=== PATIENT | male | born 2000 | race Caucasian/White ===

== ENCOUNTER 2020-02-04 21:27 | Emergency (ER) | payer OTHER ==
[~2020-02-04] VITALS: Ht 167.6 cm; Wt 54.4 kg
[2020-02-04] MEDS ORDERED: AMOXICILLIN500 MG PO (21:45)
[2020-02-04] MEDS ORDERED: CLEOCIN HCL300 MG PO (21:45)
== END 2020-02-04 22:11 | disposition home or self-care (01) ==
LOC: ED 21:27
DX: K04.7 Periapical abscess without sinus (principal)
CPT/HCPCS: 99282

== ENCOUNTER 2020-02-21 20:06 | Emergency (ER) | payer OTHER ==
[~2020-02-21] VITALS: Ht 167.6 cm; Wt 54.4 kg
[~2020-02-21 20:06] MED LIST: AMOXICILLIN500 MG PO; CLEOCIN HCL300 MG PO
--- OUTSIDE RECORDS SUMMARY | 2020-02-21 20:08 | XMS ---
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 Ana has no Care Guidelines for this patient. [facility]12 MO.) [facility] NOTE: Visits indicate total known visits. ED/C VISIT TRACKING (12 MO.) [facility]2020 [facility] COMPLAINT: - LT SIDE TONSIL PAIN 02/04/2020 21:28 [facility] [place] TYPE: Emergency COMPLAINT: - THROAT SWELLING DIAGNOSES: - Periapical abscess without sinus INPATIENT VISIT TRACKING (12 MO.) No inpatient visits to display in this time frame [email or web address]
== END 2020-02-21 21:27 | disposition home or self-care (01) ==
LOC: ED 20:06
DX: J02.9 Acute pharyngitis, unspecified (principal)
CPT/HCPCS: 87880; 99283; A9270; J1100

== ENCOUNTER 2020-03-11 13:29 | Emergency (ER) | payer OTHER ==
[~2020-03-11] VITALS: Ht 167.6 cm; Wt 54.4 kg
--- OUTSIDE RECORDS SUMMARY | 2020-03-11 13:32 | XMS ---
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 Care History Medical/Surgical 02/24/2020 [facility] - PATIENT HAS AN APT ON 03/06/20 TO ESTABLISH CARE WITH SAMANTHA GHOSH. - Patient is currently established with [facility]. If patient is seen in the ED during business hours. Please contact CHWs at [facility]. - Care Recommendation: If this patient has had 5 or more Emergency Department visits in the last 12 months.\T\nbsp; Patient will require education on the scope and purpose of the ED as an acute care provider not a Primary Care Provider and should not be utilized for chronic conditions.\T\nbsp; These are guidelines and the provider should exercise clinical judgment when providing care. 02/22/2020 [facility] - CHW CALLED PATIENT - NO ANSWER- - PATIENT DOES NOT HAVE A PCP IN THE AREA. - NO PCP LETTER SENT TO PATIENT. E.D. VISIT COUNT (12 MO.) [address] [facility] [place] TOTAL 3 NOTE: Visits indicate total known visits. ED/UCC VISIT TRACKING (12 MO.) 03/11/2020 13:29 [facility] [place] TYPE: Emergency COMPLAINT: - VOMITING 02/21/2020 20:06 [facility] [place] TYPE: Emergency COMPLAINT: - SORE THROAT DIAGNOSES: - Acute pharyngitis, unspecified 02/04/2020 21:28 [facility] [place] TYPE: Emergency COMPLAINT: - THROAT SWELLING DIAGNOSES: - Periapical abscess without sinus INPATIENT VISIT TRACKING (12 MO.) No inpatient visits to display in this time frame [id number]
[2020-03-11] MEDS ORDERED: PROMETHAZINE HC25 M1 PO (18:27)
[2020-03-11] MEDS ORDERED: ONDANSETRON ODT8 MG PO (18:27)
== END 2020-03-11 18:43 | disposition home or self-care (01) ==
LOC: ED 13:29
DX: K52.9 Noninfective gastroenteritis and colitis, unspecified (principal)
CPT/HCPCS: 80053; 81001; 83735; 85025; 96361; 96374; 96375; 99284-25; C9113; J1790; J2405; J2550; J7030

== ENCOUNTER 2020-03-20 19:44 | Emergency (ER) | payer OTHER ==
[~2020-03-20] VITALS: Ht 167.6 cm; Wt 51.7 kg
[~2020-03-20 19:44] MED LIST changes: +ONDANSETRON ODT8 MG PO; +PROMETHAZINE HC25 M1 PO
--- OUTSIDE RECORDS SUMMARY | 2020-03-20 19:48 | XMS ---
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 Care History Medical/Surgical 02/24/2020 [facility] - PATIENT HAS AN APT ON 03/22/20 TO ESTABLISH CARE WITH SAMANTHA GHOSH. - Patient is currently established with [facility]. If patient is seen in the ED during business hours. Please contact CHWs at [facility]. - Care Recommendation: If this patient has had 5 or more Emergency Department visits in the last 12 months.\T\nbsp; Patient will require education on the scope and purpose of the ED as an acute care provider not a Primary Care Provider and should not be utilized for chronic conditions.\T\nbsp; These are guidelines and the provider should exercise clinical judgment when providing care. 02/22/2020 [facility] - CHW CALLED PATIENT - NO ANSWER- - PATIENT DOES NOT HAVE A PCP IN THE AREA. - NO PCP LETTER SENT TO PATIENT. EIrasemaD. VISIT COUNT (12 MO.) [address] [facility] [place] TOTAL 4 NOTE: Visits indicate total known visits. ED/UCC VISIT TRACKING (12 MO.) 03/20/2020 19:45 [facility] [place] TYPE: Emergency COMPLAINT: - POSSIBLE TOOTH INFECTION 03/11/2020 13:29 [facility] [place] TYPE: Emergency COMPLAINT: - VOMITING DIAGNOSES: - Noninfective gastroenteritis and colitis, unspecified - Diarrhea, unspecified 02/21/2020 20:06 [facility] [place] TYPE: Emergency COMPLAINT: - SORE THROAT DIAGNOSES: - Acute pharyngitis, unspecified 02/04/2020 21:28 [facility] [place] TYPE: Emergency COMPLAINT: - THROAT SWELLING DIAGNOSES: - Periapical abscess without sinus INPATIENT VISIT TRACKING (12 MO.) No inpatient visits to display in this time frame [id number]
[2020-03-20] MEDS ORDERED: AMOX TR-K CLV1 EAC1 PO (20:11)
== END 2020-03-20 20:40 | disposition home or self-care (01) ==
LOC: ED 19:44
DX: K08.89 Other specified disorders of teeth and supporting structures (principal); H60.91 Unspecified otitis externa, right ear; Z79.899 Other long term (current) drug therapy
CPT/HCPCS: 99282

== ENCOUNTER 2022-01-18 14:34 | Emergency (ER) | payer OTHER ==
[~2022-01-18] VITALS: Ht 167.6 cm; Wt 51.7 kg
[~2022-01-18 14:34] MED LIST changes: +AMOX TR-K CLV1 EAC1 PO
== END 2022-01-18 17:21 | disposition home or self-care (01) ==
LOC: ED 14:34
DX: S61.215A Laceration without foreign body of left ring finger without damage to nail, initial encounter (principal); W22.8XXA Striking against or struck by other objects, initial encounter
CPT/HCPCS: 12001; 99282-25

== ENCOUNTER 2022-03-19 20:46 | Emergency (ER) | payer OTHER ==
[~2022-03-19] VITALS: Ht 167.6 cm; Wt 51.8 kg
--- OUTSIDE RECORDS SUMMARY | 2022-03-19 20:52 | XMS ---
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 Care History Medical/Surgical 02/24/2020 [facility] - PATIENT HAS AN APT ON 03/22/20 TO ESTABLISH CARE WITH SAMANTHA GHOSH. - Patient is currently established with [facility]. If patient is seen in the ED during business hours. Please contact CHWs at [facility]. - Care Recommendation: If this [...] exercise clinical judgment when providing care. 02/22/2020 [facility] - CHW CALLED PATIENT - NO ANSWER- - PATIENT DOES NOT HAVE A PCP IN THE AREA. - NO PCP LETTER SENT TO PATIENT. EIrasemaD. VISIT COUNT (12 MO.) [address] [facility] [place] TOTAL 4 NOTE: Visits indicate total known visits. ED/UCC VISIT TRACKING (12 MO.) 03/19/2022 20:46 [facility] [place] TYPE: Emergency COMPLAINT: - VOMITING, NAUSEA 03/18/2022 09:38 [facility] [place] TYPE: Emergency COMPLAINT: - VOMITING BLOOD 02/03/2022 18:59 [facility] [place] TYPE: Emergency COMPLAINT: - STITCH REMOVAL 01/18/2022 14:35 [facility] [place] TYPE: Emergency COMPLAINT: - L RING FINGER LACERATION/INJURY DIAGNOSES: - Striking against or struck by other objects, initial encounter - Laceration without foreign body of left ring finger without damage to nail, initial encounter INPATIENT VISIT TRACKING (12 MO.) No inpatient visits to display in this time frame [email or web address]
[2022-03-19] MEDS ORDERED: PROTONIX40 MG PO (23:37)
[2022-03-19] MEDS ORDERED: PROMETHAZINE HC25 M1 PO (23:37)
== END 2022-03-19 23:53 | disposition home or self-care (01) ==
LOC: ED 20:46
DX: K29.00 Acute gastritis without bleeding (principal)
CPT/HCPCS: 36415; 80053; 81001; 83690; 85025; 96361; 96374; 96375; 99284-25; C9113; J1170; J2405; J2550; J7030

== ENCOUNTER 2022-09-10 20:18 | Emergency (ER) | payer OTHER ==
[~2022-09-10] VITALS: Ht 167.6 cm; Wt 49.0 kg
[~2022-09-10 20:18] MED LIST changes: +PROTONIX40 MG PO
[2022-09-10 22:05] VITALS: BP 116/73
== END 2022-09-10 22:05 | disposition home or self-care (01) ==
LOC: ED 20:18
DX: E86.0 Dehydration (principal); R11.10 Vomiting, unspecified
CPT/HCPCS: 36415; 80053; 83690; 85025; J2405; J7121